=== PATIENT | female | born 1985 | race African-American/Black ===

== ENCOUNTER 2019-12-24 23:31 | Emergency (ER) | payer MEDICAID ==
[~2019-12-24] VITALS: Ht 167.6 cm; Wt 83.9 kg
[2019-12-25] MEDS ORDERED: KETOROLAC TROMETH 60MG/2ML VIAL IM ONE (04:45)
== END 2019-12-25 04:56 | disposition home or self-care (01) ==
LOC: ER 23:31
DX: S02.5XXA Fracture of tooth (traumatic), initial encounter for closed fracture (principal); K04.7 Periapical abscess without sinus; X58.XXXA Exposure to other specified factors, initial encounter; Y93.89 Activity, other specified; Y92.89 Other specified places as the place of occurrence of the external cause; Y99.8 Other external cause status
CPT/HCPCS: 96372; 99283; J1885